=== PATIENT | female | born 1965 | race Caucasian/White ===

== ENCOUNTER 2019-08-19 05:54 | Outpatient (RCR) | payer BC ==
[~2019-08-19] VITALS: Ht 172 cm; Wt 97.7 kg
[~2019-08-19 05:54] MED LIST: ACHD5005 PO; CALC600T12 PO; ESTR0.5T PO; LEVO50TA6 PO; MEDR5TAB4 PO; NAPR220T66 PO; NF-SOLIF5T PO; PHEN-483 PO; SULF1TAB35 PO
[2019-08-19] MEDS ORDERED: SOLI10TA7 PO (10:38)
[2019-08-19] MEDS ORDERED: ESTR1PAT37 TD (10:38)
[2019-08-19] MEDS ORDERED: LEVO75TA6 PO (10:38)
== END 2019-08-19 10:59 | disposition home or self-care (01) ==
LOC: PREOP 05:54
PROVIDERS: ATTEND Obstetrics & Gynecology
DX: Z01.818 Encounter for other preprocedural examination (principal); N80.9 Endometriosis, unspecified; Z11.59 Encounter for screening for other viral diseases
CPT/HCPCS: U0002; 87635

== ENCOUNTER 2019-08-21 06:11 | Day surgery (SDC) | payer BC ==
[2019-08-21] VITALS (11 sets, daily range): BP systolic 115–145; BP diastolic 79–93
[~2019-08-21] VITALS: Ht 172 cm; Wt 97.7 kg
[~2019-08-21 06:11] MED LIST changes: +ESTR1PAT37 TD; +LEVO75TA6 PO; +SOLI10TA7 PO
[2019-08-21] MEDS ORDERED: LACTATED RINGERS 1,000 ML IV PRN (06:21)
[2019-08-21 06:43] LABS: BASOPHILS % (AUTO) 1 % (0-10); EOSINOPHILS # (AUTO) 0.1 10^3/uL (0.0-0.3); EOSINOPHILS % (AUTO) 2 % (0-10); HEMATOCRIT 36 % (35-52); LYMPHOCYTES # (AUTO) 1.5 X 10^3 (1.0-4.0); LYMPHOCYTES % (AUTO) 40 % (12-44); MEAN CORPUSCULAR HEMOGLOBIN 30 PG (25-34); MEAN CORPUSCULAR HGB CONC 33 G/DL (32-36); MEAN CORPUSCULAR VOLUME 90 FL (80-99); MEAN PLATELET VOLUME 10.2 FL (7.4-10.4); MONOCYTES # (AUTO) 0.3 X 10^3 (0.0-1.0); MONOCYTES % (AUTO) 8 % (0-12); NEUTROPHILS # (AUTO) 1.9 X 10^3 (1.8-7.8); NEUTROPHILS % (AUTO) 50 % (42-75); PLATELET COUNT 203 10^3/uL (130-400); RED CELL DISTRIBUTION WIDTH 12.6 % (10.0-14.5); WHITE BLOOD COUNT 3.8 10^3/uL (4.3-11.0)
[2019-08-21] MEDS ORDERED: ONDANSETRON 4 MG/2 ML (SDV) Z0FRAN IV ONE (07:00)
[2019-08-21] MEDS ORDERED: FAMOTIDINE 20MG/2ML IV (PEPCID) IV ONE (07:00)
[2019-08-21] MEDS ORDERED: SCOPOLAMINE 1.5 MG (TRANSDERM-SCOP) PATCH TOP ONE (07:00)
[2019-08-21] MEDS ORDERED: fentaNYL INJECTION 100 MCG/2 ML AMP ONE ×2 (07:11→08:46)
[2019-08-21] MEDS ORDERED: MIDAZOLAM 2 MG/2 ML (VERSED) VIAL ONE ×2 (07:11→07:12)
--- NOTE | 2019-08-21 07:31 | History & Physical-OB/GYN ---
History of Present Illness History of Present Illness Reason for visit/HPI Ms. Colon is being admitted for outpatient surgery, Hysteroscopy, D & C , Endometrial Ablation secondary to heavy, prolonged, painful bleeding Date of Admission August 21, 2019 Date Seen by a Provider: August 21, 2019 Time Seen by a Provider: 07:15 I consulted on this patient on 08/21/19 07:26 Attending Physician Justin Salmon DO Admitting Physician Justin Salmon DO Consult Allergies and Home Medications Allergies Coded Allergies: amoxicillin (Verified Allergy, Mild, RASH, 08/19/19) levofloxacin (Verified Allergy, Mild, RASH, 08/19/19) phenazopyridine (Verified Allergy, Mild, RASH, 08/19/19) tramadol (Verified Allergy, Mild, RASH, 08/19/19) Home Medications Estradiol/Levonorgestrel 1 Each Patch.tdwk, 1 EACH TD Weekly, (Reported) Levothyroxine Sodium 75 Mcg Tablet, 75 MCG PO DAILY, (Reported) Naproxen Sodium 220 Mg Tablet, 440 MG PO DAILY, (Reported) Phentermine HCl 37.5 Mg Capsule, 37.5 MG PO DAILY, (Reported) Solifenacin Succinate 10 Mg Tablet, 10 MG PO DAILY, (Reported) Patient Home Medication List Home Medication List Reviewed: Yes Past Pagygqa-Gvliov-Krprws Hx Patient Social History Marrital Status: Number of Children: 2 Number of living children: 2 Employed/Student: employed Alcohol Use: Denies Use Recreational Drug Use: No Smoking Status: Never a Smoker 2nd Hand Smoke Exposure: No Recent Foreign Travel: No Contact w/other who traveled: No Recent Hopitalizations: No Seasonal Allergies Seasonal Allergies: No Surgeries Yes (RIGHT KNEE SCOPE, LEFT ANKLE TORN LIGAMENTS, LUMPECTOMY R BREAST, R FOOT) Appendectomy, Breast (Lumpectom), Section, Orthopedic (Bilateral Knee Arthroscopy, Ankle Surgery), Thyroidectomy Respiratory No Cardiovascular No Neurological No Reproductive System Hx Reproductive Disorders: No Sexually Transmitted Disease: No HIV/AIDS: No Female Reproductive Disorders: Denies Genitourinary Yes UTI-Chronic Gastrointestinal Yes Chronic Constipation Musculoskeletal Yes Arthritis Endocrine History of Endocrine Disorders: Yes Endocrine Disorders: Hypothyroidsim HEENT History of HEENT Disorders: No (READING GLASSES) Loss of Vision: Denies Hearing Impairment: Denies Cancer No Psychosocial History of Psychiatric Problem: No Integumentary History of Skin or Integumenta: No Blood Transfusions History of Blood Disorders: No Adverse Reaction to a Blood Tr: No (N/A) Review of Systems Constitutional: see HPI Physical Exam Physical Exam Vital Signs Capillary Refill : Labs Laboratory Tests 08/21/19 06:30: White Blood Count 3.8L, Red Blood Count 3.97L, Hemoglobin 12.0, Hematocrit 36, Mean Corpuscular Volume 90, Mean Corpuscular Hemoglobin 30, Mean Corpuscular Hemoglobin Concent 33, Red Cell Distribution Width 12.6, Platelet Count 203, Mean Platelet Volume 10.2, Neutrophils (%) (Auto) 50, Lymphocytes (%) (Auto) 40, Monocytes (%) (Auto) 8, Eosinophils (%) (Auto) 2, Basophils (%) (Auto) 1, Raul trophils # (Auto) 1.9, Lymphocytes # (Auto) 1.5, Monocytes # (Auto) 0.3, Eosinophils # (Auto) 0.1, Basophils # (Auto) 0.0 General Appearance: No Apparent Distress, WD/WN Respiratory: Chest Non Tender, Lungs Clear, Normal Breath Sounds Cardiovascular: Regular Rate, Rhythm, No Murmur Abdominal: normal bowel sounds, non tender Uterus: WNL Extremity: Normal Inspection, Non Tender, No Calf Tenderness Assessment/Plan Assessment and Plan Assessment: Menometrorrhagia Plan: Hysteroscopy, D & C, Endometrial Ablation. The procedure and its associated risks were reviewed. All questions were answered. Admission Diagnosis Admission Status: Observation Reason for Inpatient Admission: Outpatient Surgery, Hysteroscopy, D & C, Endometrial Ablation JUSTIN SALMON DO August 21, 2019 07:31
[2019-08-21] MEDS ORDERED: ONDANSETRON 4 MG/2 ML (SDV) Z0FRAN ONE (08:14)
[2019-08-21] MEDS ORDERED: DEXAMETHASONE 10 MG/ML (DECADRON) 1 ML VIAL ONE (08:14)
[2019-08-21] MEDS ORDERED: SEVOFLURANE (ULTANE) 15 ML INHAL SOLN ONE (08:14)
[2019-08-21] MEDS ORDERED: proPOfol 200 MG/20 ML (DIPRIVAN) VIAL IV ONE (08:14)
[2019-08-21] MEDS ORDERED: LIDOCAINE PF 2% 5 ML (XYLOCAINE) VIAL ONE (08:14)
--- NOTE | 2019-08-21 08:36 | Operative Report ---
Operative Report Date of Procedure/Surgery August 21, 2019 Surgeon (s) JON SERRANO DO Software Development Leader (s): None Post-Operative Diagnosis Menometrorrhagia Procedure Performed Hysteroscopy, D & C, Endometrial Ablaton (Mirneva) Description of Procedure Anesthesia Type: MAC Estimated blood loss (mL): 50 ml Specimen(s) collected/removed Endometrial tissue Packing: None Description of the Procedure Ms. Colon was taken to the Operating Room with IV fluids running. Once in the OR, MAC anesthesia was administered without difficulty. She was placed in the dorsal lithotomy position, prepped and draped in the normal sterile fashion. I drained her bladder. A bivalve speculum was introduced into her vaginal vault. The anterior lip of the cervix was grasped with a single toothed tenaculum and she was sounded to 8 cm. Then, utilizing the Hegar dilators, she was dilated in a stepwise fashion. A hysteroscope was introduced into the intrauterine cavity--moderate amount of "fluffy" (endometrial) tissue was noted. The right and left ostia were viewed. Utilizing a small sharp curette, curettage was performed until a gritty texture was noted. At this point, the Gina Ablation device was place in the intrauterine cavity, activated for two minutes. It was then removed--on the tip of the device was cauterized tissue. The single toothed tenaculum was removed--a small amount of bleeding was noted--Monsel's solution was applied, hemostasis was achieved. Rillito speculum was removed from the vaginal vault. Sponge, instrument, needle counts were correct x 3. Ms. Colon was taken to the Recovery Room where orders were written. Findings of the Procedure Moderate amount of endometrial tissue in the intrauterine cavity Allergies and Home Medications Allergies Coded Allergies: amoxicillin (Verified Allergy, Mild, RASH, 08/19/19) levofloxacin (Verified Allergy, Mild, RASH, 08/19/19) phenazopyridine (Verified Allergy, Mild, RASH, 08/19/19) tramadol (Verified Allergy, Mild, RASH, 08/19/19) Home Medications Estradiol/Levonorgestrel 1 Each Patch.tdwk, 1 EACH TD Weekly, (Reported) Levothyroxine Sodium 75 Mcg Tablet, 75 MCG PO DAILY, (Reported) Naproxen Sodium 220 Mg Tablet, 440 MG PO DAILY, (Reported) Phentermine HCl 37.5 Mg Capsule, 37.5 MG PO DAILY, (Reported) Solifenacin Succinate 10 Mg Tablet, 10 MG PO DAILY, (Reported) Patient Home Medication List Home Medication List Reviewed: Yes JON SERRANO DO August 21, 2019 08:36
[2019-08-21] MEDS ORDERED: ONDANSETRON 4 MG/2 ML (SDV) Z0FRAN IVP ONE (08:45)
[2019-08-21] MEDS ORDERED: fentaNYL INJECTION 100 MCG/2 ML AMP IVP PRN (08:45)
[2019-08-21] MEDS ORDERED: KETOROLAC 30 MG/ML VIAL IVP ONE (08:45)
[2019-08-21] MEDS ORDERED: oxyCODONE/APAP 5/325MG (PERCOCET 5) TABLET PO PRN (08:45)
[2019-08-21] MEDS ORDERED: OXYC1TAB87 PO (09:01)
[2019-08-21] MEDS ORDERED: DOXY100C2 PO (09:01)
[2019-08-21] MEDS ORDERED: IBUP-1780 PO (09:01)
[2019-08-21] MEDS ORDERED: fentaNYL INJECTION 100 MCG/2 ML AMP IVP ONE ×2 (09:15)
[2019-08-21] MEDS ORDERED: ONDANSETRON 4 MG/2 ML (SDV) Z0FRAN IVP PRN (09:15)
[2019-08-21] MEDS ORDERED: IBUPROFEN 800 MG (MOTRIN) TAB PO SCH (12:00)
--- NOTE | 2019-08-21 12:18 | Anesthesia-General Post-Op ---
General Patient Condition Mental Status/LOC: Same as Preop Cardiovascular: Satisfactory Nausea/Vomiting: Absent Respiratory: Satisfactory Pain: Controlled Complications: Absent Post Op Complications Complications None Follow Up Care/Instructions Patient Instructions None needed. Anesthesia/Patient Condition Patient Condition Patient is doing well, no complaints, stable vital signs, no apparent adverse anesthesia problems. No complications reported per nursing. JELANI CARDONA CRNA August 21, 2019 12:18
== END 2019-08-21 11:13 | disposition home or self-care (01) ==
LOC: SDC 06:11
PROVIDERS: ATTEND Obstetrics & Gynecology
DX: N92.1 Excessive and frequent menstruation with irregular cycle (principal); N85.9 Noninflammatory disorder of uterus, unspecified; N39.0 Urinary tract infection, site not specified; K59.09 Other constipation; E03.9 Hypothyroidism, unspecified; M19.90 Unspecified osteoarthritis, unspecified site; Z88.1 Allergy status to other antibiotic agents; Z88.6 Allergy status to analgesic agent; Z88.8 Allergy status to other drugs, medicaments and biological substances; Z79.899 Other long term (current) drug therapy; Z90.11 Acquired absence of right breast and nipple; Z90.89 Acquired absence of other organs; Z82.49 Family history of ischemic heart disease and other diseases of the circulatory system; Z83.3 Family history of diabetes mellitus
CPT/HCPCS: 36415; 84703; 85025; 86850; 86900; 86901; 87081; 87635; 88305

== ENCOUNTER → 2020-09-10 | Outpatient (REF) ==
[~2020-09-10] MED LIST changes: -CALC600T12 PO; +CALC600T91 PO; +DOXY100C2 PO; +IBUP-1780 PO; +OXYC1TAB87 PO
--- NOTE | 2020-09-10 11:06 | Diagnostic Imaging Report ---
INDICATION: Decreased range of motion with pain lifting heavy object. FINDINGS: 3 views. Glenohumeral joints are in good alignment. Articulating surfaces are smooth. AC joint shows good alignment without hypertrophic change. No fractures are demonstrated. No soft tissue calcification. IMPRESSION: Normal right shoulder. Dictated by: Dictated on workstation # [id number]
== END ==
LOC: OCC 10:29
PROVIDERS: ATTEND Family Medicine
DX: M25.511 Pain in right shoulder (principal)
CPT/HCPCS: 73030

== ENCOUNTER 2021-02-16 05:30 | Outpatient (RCR) | payer BC ==
[~2021-02-16] VITALS: Ht 172.7 cm; Wt 104.5 kg
[~2021-02-16 05:30] MED LIST changes: -DOXY100C2 PO; +DOXY100C5 PO; +RUTI1TAB PO; -SULF1TAB35 PO; +SULF1TAB38 PO
[2021-02-18] MEDS ORDERED: CLIN150C2 PO (10:28)
[2021-02-18] MEDS ORDERED: ACHD5005 PO (10:28)
== END 2021-02-16 09:09 | disposition home or self-care (01) ==
LOC: PREOP 05:30
PROVIDERS: ATTEND Podiatrist Foot & Ankle Surgery
DX: Z01.812 Encounter for preprocedural laboratory examination (principal); Z20.822 Contact with and (suspected) exposure to COVID-19
CPT/HCPCS: 87635

== ENCOUNTER 2021-02-18 06:11 | Day surgery (SDC) | payer BC ==
[2021-02-18] VITALS (10 sets, daily range): BP systolic 115–129; BP diastolic 73–87
[~2021-02-18] VITALS: Ht 172.7 cm; Wt 104.5 kg
[2021-02-18] MEDS ORDERED: CLINDAMYCIN 600 MG/50 ML IVPB 50 ML IV ONE (06:15)
[2021-02-18] MEDS ORDERED: ONDANSETRON 4 MG/2 ML (SDV) Z0FRAN IV ONE (07:00)
[2021-02-18] MEDS ORDERED: FAMOTIDINE 20MG/2ML IV (PEPCID) IV ONE (07:00)
[2021-02-18] MEDS ORDERED: FAMOTIDINE 20MG/2ML IV (PEPCID) ONE (07:01)
[2021-02-18] MEDS ORDERED: ONDANSETRON 4 MG/2 ML (SDV) Z0FRAN ONE ×2 (07:01→07:05)
[2021-02-18] MEDS ORDERED: fentaNYL INJ 100 MCG/2 ML AMP ONE (07:05)
[2021-02-18] MEDS ORDERED: proPOfol 200 MG/20 ML (DIPRIVAN) VIAL IV ONE (07:05)
[2021-02-18] MEDS ORDERED: MIDAZOLAM 2 MG/2 ML (VERSED) VIAL ONE (07:05)
[2021-02-18] MEDS ORDERED: LIDOCAINE PF 2% 5 ML (XYLOCAINE) VIAL ONE (07:05)
[2021-02-18] MEDS ORDERED: BUPIVACAINE 0.5% 30 ML (SENSORCAINE) VIAL ONE (07:22)
[2021-02-18] MEDS ORDERED: LIDOCAINE 1% INJ 20 ML 20 ML VIAL ONE (07:22)
--- NOTE | 2021-02-18 07:46 | Progress Note-Pre Operative ---
Pre-Operative Progress Note H&P Reviewed The H&P was reviewed, patient examined and no changes noted. Date Seen by Provider: Feb 18, 2021 Time Seen by Provider: 07:45 Date H&P Reviewed: Feb 18, 2021 Time H&P Reviewed: 07:45 Pre-Operative Diagnosis: LisFranc Dislocation, left JOYCELYN VALDEZ DPSergey Feb 18, 2021 07:45
[2021-02-18] MEDS: LACTATED RINGERS 1,000 ML IV PRN ×2 (08:42→09:40)
[2021-02-18] MEDS ORDERED: SEVOFLURANE (ULTANE) 15 ML INHAL SOLN ONE ×2 (10:11→10:20)
--- NOTE | 2021-02-18 10:23 | Anesthesia-General Post-Op ---
General Patient Condition Mental Status/LOC: Same as Preop Cardiovascular: Satisfactory Nausea/Vomiting: Absent Respiratory: Satisfactory Pain: Controlled Complications: Absent Post Op Complications Complications None Follow Up Care/Instructions Patient Instructions None needed. Anesthesia/Patient Condition Patient Condition Patient is doing well, no complaints, stable vital signs, no apparent adverse anesthesia problems. No complications reported per nursing. JELANI CARDONA CRNA Feb 18, 2021 10:23
--- NOTE | 2021-02-18 10:25 | Progress Note-Post Operative ---
Post-Operative Progess Note Surgeon (s)/Video Game Animator (s) Surgeon JOYCELYN VALDEZ DPM Video Game Animator: none Pre-Operative Diagnosis LisFranc Dislocation, left Post-Operative Diagnosis Same Procedure & Operative Findings Date of Procedure 02/18/21 Procedure Performed/Findings Open Reduction/ Internal Fixation of LisFranc dislocation, left Anesthesia Type General Estimated Blood Loss Estimated blood loss (mL): Minimal Specimens/Packing Specimens Removed none JOYCELYN VALDEZ DPM Feb 18, 2021 10:25
[2021-02-18] MEDS ORDERED: ACHD5005 PO (10:28)
[2021-02-18] MEDS ORDERED: CLIN150C2 PO (10:28)
[2021-02-18] MEDS ORDERED: morphine INJ 10 MG/ML 1ML (SYR OR VIAL) ONE (10:29)
[2021-02-18] MEDS ORDERED: morphine INJ 10 MG/ML 1ML (SYR OR VIAL) IVP ONE (10:30)
[2021-02-18] MEDS ORDERED: ONDANSETRON 4 MG/2 ML (SDV) Z0FRAN IVP PRN (10:30)
[2021-02-18] MEDS ORDERED: fentaNYL INJ 100 MCG/2 ML AMP IVP ONE (10:30)
[2021-02-18] MEDS ORDERED: LACTATED RINGERS 1,000 ML IV SCH (10:30)
[2021-02-18] MEDS ORDERED: HYDROcodone/APAP 5 MG/325 MG (LORTAB) TAB PO PRN (10:30)
--- NOTE | 2021-02-18 13:09 | Diagnostic Imaging Report ---
INDICATION: Left foot surgery. Fluoroscopy was provided in the OR during left foot surgery. There are plates and screws transfixing the 1st and 2nd tarsometatarsal joints. 17 seconds of fluoroscopic time was utilized. 2 images were obtained. IMPRESSION: Fluoroscopy for left foot surgery. Dictated by: Dictated on workstation # [id number]
--- NOTE | 2021-02-18 15:15 | OPERATIVE REPORT ---
DATE OF SERVICE: 02/18/2021 SURGEON: Tomasa Valdez DPM. PREOPERATIVE DIAGNOSIS: Lisfranc dislocation, left foot. POSTOPERATIVE DIAGNOSIS: Lisfranc dislocation, left foot. PROCEDURE: Open reduction and internal fixation of Lisfranc's dislocation, left foot. WOUND CLASS: Clean. ANESTHESIA: General. HEMOSTASIS: Pneumatic thigh tourniquet at 250 mmHg. INDICATIONS: This 55-year-old female presents complaining of chronic pain to the left foot. She had an injury to the left foot that was further evaluated in her office x-rays. X-rays demonstrated diastasis between the medial cuneiform and base of the second metatarsal. She had persistent pain in this area despite conservative treatment. Conservative treatment had failed and she is interested in surgical intervention after risks and complications were discussed at length. No guarantees were extended to the patient and she is willing to proceed. DESCRIPTION OF PROCEDURE: The patient was brought back to the operating table, placed in secure supine position. Appropriate timeout was performed. A general anesthetic was then induced. Pneumatic thigh tourniquet was placed on the left lower extremity over several layers of padding. The left foot was anesthetized utilizing 10 mL of 1% Xylocaine, 0.5% Marcaine injected in a local infusion to the surgical site of the first and second rays. The patient had the left foot prepped and draped in normal sterile manner. The left foot was then elevated and allowed to exsanguinate after which the tourniquet was inflated to 250 mmHg. Attention was then directed to the dorsal aspect of the base of the second metatarsal extending proximally into the intermediate cuneiform. The incision was approximately 4.5 cm. The incision was deepened in the same plane with great care to identify and retract all vital neurovascular structures, particularly the deep peroneal nerve and the dorsalis pedis artery. The incision was deepened down to the second metatarsal intermediate cuneiform articulation where a subperiosteal dissection was carried out. There is significant instability between the second metatarsal base into the medial cuneiform area. Further dissection was carried out medially. There was instability associated with the first metatarsal medial cuneiform joint. It was then decided that a plate and screw system would be more advantageous than a simple screw fixation from the medial cuneiform into the second metatarsal base. After careful dissection and evaluation, the [place] 28 plating system for the first two rays was applied. It was first and second rays small plate left that was applied. Utilizing standard technique, two locking screws were applied to the most proximal aspect of the plate that were overlying the medial and intermediate cuneiforms. A 3.5 screws were used throughout the procedure. The 2 proximal locking screws were of 32 and 28 mm of length for the medial and intermediate cuneiforms respectively. The two nonlocking screws were applied to the distal aspect of the plating system, the first into the second metatarsal was 14 mm of length. The next was applied to the medial portion of the plate over the first metatarsal, which was 18 mm away. Unfortunately, the soft tissue envelope did not allow me to get over to the diaphysis of the first metatarsal and a second incision was made overlying this area of approximately 2 cm of length. The two nonlocking screws were placed in an oblique manner allowing for some compression across the metatarsophalangeal joints. Next, the middle screw holes for the plating system allowed for two more additional locking screws, one was 26 and the other of 22 mm of length. Excellent bony apposition and fixation was noted at this time. It also should be noted that prior to any plating, the dislocation was reduced and confirmed on the C-arm with a fracture clamp. The wound was irrigated throughout the procedure. Once plating system was confirmed in appropriate position, the tourniquet was dropped, allow for inspection of the wounds. No pulsatile activity was identified. Minor oozing was identified to several areas and cauterized as encountered. The wound was flushed once again and closure was then performed in layers. Deep closure was performed with a 3-0 Vicryl superficial, 4-0 Vicryl skin closure with 4-0 Prolene in a horizontal mattress type stitch to both incisions. Postoperative injection consisted of 14 mL of 0.5% Marcaine injected in a local infusion to the surgical sites. Postoperative dressing consisted of Betadine soaked Adaptic, sterile 4 x 4, sterile Kerlix all secured with a soft roll, ABD pads, a posterior splint secured with two Rashi wraps. The patient tolerated the anesthesia and procedure well, was transported from the operating room to the recovery room with vital signs stable and vascular status intact to all digits of the left foot. She is to be nonweightbearing on the left lower extremity. She was given a prescription for hydrocodone as well as clindamycin. The patient indicated that she has tolerated hydrocodone in the past and is willing to proceed with that. However, she is to utilize anti-inflammatory such as ibuprofen in between doses of the narcotic. She is to be absolutely nonweightbearing. A prescription for a knee scooter was also given. She already has a set of crutches at home, which she has used to successfully in the past. Job ID: [id number] DocumentID: [id number] Dictated Date: 02/18/2021 10:40:24 Anchor Tack Puller Date: 02/18/2021 15:15:23 Dictated By: TOMASA VALDEZ DPM
== END 2021-02-18 14:04 ==
LOC: SDC 06:11
PROVIDERS: ATTEND Podiatrist Foot & Ankle Surgery
DX: S93.325A Dislocation of tarsometatarsal joint of left foot, initial encounter (principal); E03.9 Hypothyroidism, unspecified; E66.9 Obesity, unspecified; Z68.35 Body mass index [BMI] 35.0-35.9, adult; Z79.890 Hormone replacement therapy; Z79.899 Other long term (current) drug therapy
CPT/HCPCS: 76000; 87081

== ENCOUNTER 2021-12-26 05:39 | Outpatient (CLI) | payer BC ==
[~2021-12-26] VITALS: Ht 172.7 cm; Wt 104.6 kg
[~2021-12-26 05:39] MED LIST changes: +CLIN150C2 PO
[2021-12-26] MEDS ORDERED: ESTR1PAT37 TD (16:31)
== END 2021-12-26 16:41 ==
LOC: PREOP 05:39
PROVIDERS: ATTEND Otolaryngology Otolaryngology/Facial Plastic Surgery
DX: Z01.818 Encounter for other preprocedural examination (principal)

== ENCOUNTER 2021-12-30 07:01 | Day surgery (SDC) | payer BC ==
[~2021-12-30] VITALS: Ht 172.7 cm; Wt 104.6 kg
[2021-12-30] VITALS (13 sets, daily range): BP systolic 114–140; BP diastolic 72–92
[2021-12-30] MEDS ORDERED: ONDANSETRON 4 MG/2 ML (SDV) Z0FRAN IVP ONE (07:30)
[2021-12-30] MEDS ORDERED: LACTATED RINGERS 1,000 ML IV PRN (07:30)
[2021-12-30] MEDS ORDERED: FAMOTIDINE 20MG/2ML IV (PEPCID) IVP ONE (07:30)
[2021-12-30] MEDS ORDERED: LIDOCAINE 1% INJ 10 ML VIAL ONE (07:52)
[2021-12-30] MEDS ORDERED: BUPIVACAINE 0.25% 30 ML (SENSORCAINE) VIAL ONE (07:52)
[2021-12-30] MEDS: VANCOMYCIN INJECTION 1,000 MG in NS (IVPB) 250 ML IV ONE ×2 (07:54→08:55)
[2021-12-30] MEDS ORDERED: fentaNYL INJ 100 MCG/2 ML AMP ONE (07:54)
[2021-12-30] MEDS ORDERED: MIDAZOLAM 2 MG/2 ML (VERSED) VIAL ONE (07:54)
[2021-12-30] MEDS ORDERED: LIDOCAINE PF 2% 5 ML (XYLOCAINE) VIAL ONE (07:54)
[2021-12-30] MEDS ORDERED: proPOfol 200 MG/20 ML (DIPRIVAN) VIAL IV ONE (07:54)
[2021-12-30] MEDS ORDERED: ONDANSETRON 4 MG/2 ML (SDV) Z0FRAN ONE (07:54)
--- NOTE | 2021-12-30 08:56 | Progress Note-Pre Operative ---
Pre-Operative Progress Note Date of Available H&P: Dec 30, 2021 Date H&P Reviewed: Dec 30, 2021 Time H&P Reviewed: 08:55 Pre-Operative Diagnosis: Failure of Hardware, exostosis, left foot JOYCELYN VALDEZ DPSergey Dec 30, 2021 08:56
[2021-12-30] MEDS ORDERED: LIDOCAINE 1% INJ 10 ML VIAL INJ ONE (09:30)
[2021-12-30] MEDS ORDERED: BUPIVACAINE 0.25% 30 ML (SENSORCAINE) VIAL INJ ONE (09:30)
[2021-12-30] MEDS ORDERED: KETOROLAC 30 MG/ML VIAL ONE (10:34)
[2021-12-30] MEDS ORDERED: SEVOFLURANE (ULTANE) 15 ML INHAL SOLN ONE (10:39)
--- NOTE | 2021-12-30 10:54 | Progress Note-Post Operative ---
Post-Operative Progess Note Surgeon (s)/Microstrategy Architect (s) Surgeon JOYCELYN VALDEZ DPM Microstrategy Architect: none Pre-Operative Diagnosis Failure of Hardware, exostosis, left foot Post-Operative Diagnosis Same with ganglionic cyst, left Procedure & Operative Findings Date of Procedure 12/30/21 Procedure Performed/Findings Removal of hardware, excision of exostosis, excision of ganglionic cyst, left foot Anesthesia Type General Estimated Blood Loss Estimated blood loss (mL): Minimal Specimens/Packing Specimens Removed bone and soft tissue left foot JOYCELYN VALDEZ DPM Dec 30, 2021 10:54
[2021-12-30] MEDS ORDERED: ACHD5005 PO (10:58)
[2021-12-30] MEDS ORDERED: ONDANSETRON 4 MG/2 ML (SDV) Z0FRAN IVP PRN (11:00)
[2021-12-30] MEDS ORDERED: HYDROmorphone 2 MG/ML VIAL (DILAUDID) IV ONE (11:00)
[2021-12-30] MEDS ORDERED: LACTATED RINGERS 1,000 ML IV SCH (11:00)
[2021-12-30] MEDS ORDERED: HYDROcodone/APAP 5 MG/325 MG (LORTAB) TAB PO PRN (11:00)
--- NOTE | 2021-12-30 11:17 | Anesthesia-General Post-Op ---
General Patient Condition Mental Status/LOC: Same as Preop Cardiovascular: Satisfactory Nausea/Vomiting: Absent Respiratory: Satisfactory Pain: Controlled Complications: Absent Post Op Complications Complications None Follow Up Care/Instructions Patient Instructions None needed. Anesthesia/Patient Condition Patient Condition Patient is doing well, no complaints, stable vital signs, no apparent adverse anesthesia problems. No complications reported per nursing. D/C home per [facility] [place] Criteria: Yes COLIN DAVILA CRNA Dec 30, 2021 11:17
--- NOTE | 2021-12-30 13:20 | Diagnostic Imaging Report ---
EXAMINATION: Left foot radiographs, 2 views. COMPARISON: None. HISTORY: 56-year-old female, postoperative evaluation. FINDINGS: There is a fixation screw in the medial cuneiform. The screw head is absent likely relating to fracture. There is evidence of prior hardware at the level of the first and second metatarsals. There is normal variant congenital fusion of the fifth digit middle and distal phalanges. 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 There is dorsal soft tissue swelling of the foot. There is also gas within the dorsal soft tissues at the level of the metatarsals which could relate to recent procedure. Recommend correlation with timing of procedure. There is a very small calcaneal heel spur. There is no identified acute fracture. There is no cortical or aggressive bone destruction. IMPRESSION: 1. Dorsal soft tissue swelling centered at the level of the metatarsals with soft tissue gas. Recommend correlation with timing of procedure. 2. There is a fixation screw present in the medial cuneiform with absence of the screw head likely relating to fracture. 3. No identified acute osseous abnormality. Dictated by: Dictated on workstation # [id number]
--- NOTE | 2021-12-30 17:23 | OPERATIVE REPORT ---
DATE OF SERVICE: 12/30/2021 SURGEON: Tomasa Jimenez DPM. PREOPERATIVE DIAGNOSES: 1. Failure of hardware, left foot. 2. Exostosis, left foot. POSTOPERATIVE DIAGNOSES: 1. Failure of hardware, left foot. 2. Exostosis, left foot. 3. Soft tissue lesion most likely ganglionic cyst, left foot. PROCEDURES PERFORMED: 1. Removal of failed hardware, left foot. 2. Exostectomy, left foot. 3. Excision of soft tissue lesion, left foot. WOUND CLASS: Clean. ANESTHESIA: General. HEMOSTASIS: Pneumatic thigh tourniquet at 300 mmHg. INDICATIONS FOR PROCEDURE: This 56-year-old female presents complaining of a painful left foot. She has had a Lisfranc injury in the past with open reduction and internal fixation. The foot has gotten somewhat better, but the soft tissue had been irritated by the hardware and some backing up of the screws of the foot. The patient is agreeable to removal of the hardware after risks and complications were discussed at length. No guarantees were extended to the patient. She understands that there are risks and complications inherent to this procedure and is willing to proceed. DESCRIPTION OF PROCEDURE: The patient was brought back to the operating table, placed in secure supine position. Appropriate timeout was performed. Pneumatic thigh tourniquet was placed on the left lower extremity over several layers of padding. The left foot was anesthetized utilizing 1:1 mixture of 1% Xylocaine, 0.5% Marcaine injected in the dorsal aspect of the left foot, 7 mL was utilized in total, just proximal to the hardware. The left foot was then prepped and draped in a normal sterile manner. The left foot was then elevated, allowed to exsanguinate after which the tourniquet was inflated to 300 mmHg. Attention was then directed to the dorsal aspect of the left foot, where two incisions were created overlying the scars of the previous procedure, one was just medial to the midline of the first metatarsal cuneiform joint area. The other was just overlying the second metatarsal cuneiform joint area lateral to the dorsalis pedis pulse. The incision was deepened down with great care to identify and retract all vital neurovascular structures. Both incisions were approximately 3 to 3.5 cm in length. The incision was deepened down through the scar tissue with great care to identify and retract the vital structures and neurovascular entities. The incision was deepened down to the hardware overlying the second metatarsal cuneiform joint as well as the first metatarsal cuneiform joint. Utilizing a [place] #28 screwdriver, the 3.5 screws were removed. The most proximal screw overlying the medial cuneiform had been broken and the majority of the screw was left within the medial cuneiform itself. The rest of the hardware was easily removed. Once the hardware was removed, there was dorsal spurring overlying in between the holes of the plate. These dorsal exostoses were reduced with a rongeur and smoothed. The wound was flushed with copious amounts of normal saline. Associated with the extensor hallucis longus tendon in the medial incision area, there was a large soft tissue lesion approximately 1.5 cm in length and approximately 1 cm from medial to lateral. This was grossly identified to be a ganglionic cyst extending from the extensor hallucis longus tendon sheath. Careful dissection was performed and it was removed and sent for gross and microscopic evaluation. The wound was flushed with copious amounts of normal saline and closure was then performed in layers. Deep closure was performed with 3-0 Vicryl, superficial with 4-0 Vicryl, and skin closed with 4-0 Prolene in a horizontal mattress type stitch. Postoperative dressing consisted of Betadine soaked Adaptic, sterile 4 x 4, and sterile Kerlix all secured with a Coban wrap. The tourniquet was released noting appropriate cap refill time to all digits of the left foot. The patient tolerated the anesthesia and procedure well and was transported from the operating room to the recovery area with vital signs stable. She is to be partial weightbearing with crutches or a walker to her tolerance. We will see her back in the office in 10 days' period of time or sooner if necessary. Job ID: [id number] DocumentID: [id number] Dictated Date: 12/30/2021 11:06:26 Band Tacker Date: 12/30/2021 17:23:01 Dictated By: HARSHAD ORNELAS
== END 2021-12-30 12:42 | disposition home or self-care (01) ==
LOC: SDC 07:01
PROVIDERS: ATTEND Podiatrist Foot & Ankle Surgery
DX: T84.293A Other mechanical complication of internal fixation device of bones of foot and toes, initial encounter (principal); M25.775 Osteophyte, left foot; M67.472 Ganglion, left ankle and foot
CPT/HCPCS: 73620; 84703; 87081